=== PATIENT | male | born 1955 | race Caucasian/White ===

== ENCOUNTER 2016-12-03 20:38 | Emergency (ER) | payer BC ==
--- NOTE | ~2016-12-03 | ER ---
PATIENT'S NAME: SARAH GOMEZ [facility] AGE: 61 Y [address] ROOM: [place], [place] [address] LOCATION: [facility] ADMIT DATE: 12/03/2016 ER/Outpatient Report DISCHARGE DATE: 12/03/2016 FAMILY PHYSICIAN: Physician, Unknown ATTENDING PHYSICIAN: Elham Ortega Time of Arrival: 2045. Time of Evaluation: 2054. CHIEF COMPLAINT: Possible bowel obstruction. HISTORY OF PRESENT ILLNESS: The patient states he had a total right knee done on 11/03/2016 in [place]. States he has had some problems with constipation off and on since then. He comes in [facility] because he is concerned that he might have a bowel obstruction. He has not had a good bowel movement for the last 9 days. He has had decreased appetite and nausea. Has some generalized abdominal discomfort. He says it is not really painful, just some general tenderness when pushing. He states he did drink a bottle of magnesium citrate on Friday 12/01 and then again 12/02. He was seen at his primary provider's on 12/02 and given a soapsuds enema with little results. Today, he did go to an urgent care center in [place] at 1330. They gave him 4 tabs of senna and mineral oil. He drank a Gatorade with MiraLAX. He states that he has had liquid type stool, but no solid stools. Denies any trouble urinating. Has not felt feverish. ALLERGIES: NO KNOWN ALLERGIES. CURRENT MEDICATIONS: On his chart and reviewed by me. PAST MEDICAL HISTORY: Benign. PAST SURGERIES: Right knee surgery. SOCIAL HISTORY: He presents to the ER accompanied by his . Denies use of tobacco, drugs, or alcohol. REVIEW OF SYSTEMS: Negative other than those mentioned in the HPI. PATIENT'S NAME: SARAH GOMEZ [facility] AGE: 61 Y [address] ROOM: [place], [place] [id number] LOCATION: [facility] ADMIT DATE: 12/03/2016 ER/Outpatient Report DISCHARGE DATE: 12/03/2016 FAMILY PHYSICIAN: Physician, Unknown ATTENDING PHYSICIAN: Elham Ortega PHYSICAL EXAMINATION: VITAL SIGNS: He weighed 102.9 kg. Blood pressure is 143/96, pulse of 88, respirations 18, temperature of 98.6, O2 saturation was 96% on room air. GENERAL: He is awake, alert, and oriented x4. SKIN: Reeves, warm, and dry. RESPIRATIONS: Even and nonlabored. Lung sounds are clear throughout. HEART: Regular rate and rhythm. ABDOMEN: Soft, nondistended. Bowel sounds are present. He does have generalized discomfort with deep palpation. He has hyperactive bowel sounds. EXTREMITIES: He does have a well-healed incision to his right knee. Denies having any knee pain. Has good range of motion of his knee. EMERGENCY DEPARTMENT COURSE: Saline lock was initiated. Lab work was drawn. CBC is within normal limits. Chem panel is within normal limits. Clean-catch UA is negative for infection. Negative for blood. CT scan of the abdomen was completed. Radiologist reports no evidence of bowel obstruction or constipation. He has a normal appendix. Fluid-filled colon. Normal pancreas. No pancreatitis. He does have fatty infiltrate of the liver and splenomegaly suggestive of portal hypertension. Results of the lab and CT were reviewed with the patient. IMPRESSION: Decreased bowel movements, abdominal pain. PLAN: Home. Did discuss with patient that he could eat. Encouraged him to add some fiber to his diet. Make sure he is maintaining his fluids. If the pain in his abdomen does not improve in the next 2 to 3 days, he is to follow up with his primary provider. He verbalized understanding. MICHAELA MARTINO APRN FOR MD TANYA WORRELL/wade /[id number] d: 12/04/16 0337 t: 12/06/16 1639, OUTPATIENT REPORT
[2016-12-03 21:33] LABS: BILIRUBIN URINE NEGATIVE (NEGATIVE); BLOOD URINE NEGATIVE /UL (NEGATIVE); COLOR URINE YELLOW (YELLOW); GLUCOSE URINE NEGATIVE (NEGATIVE); KETONE URINE 50 mg/dL (NEGATIVE); LEUKOCYTES URINE NEGATIVE /UL (NEGATIVE); NITRITE URINE NEGATIVE (NEGATIVE); PROTEIN URINE 30 mg/dL (NEGATIVE); SPEC GRAVITY URINE 1.025 (1.003-1.035); TURBIDITY URINE CLEAR (CLEAR); UROBILINOGEN URINE NORMAL (NORMAL)
[2016-12-03 21:40] LABS: BACTERIA URINE NEGATIVE (NEGATIVE); CRYSTALS URINE CALCIUM OXALATE (NEGATIVE); EPITHELIAL URINE 0-2 #/HPF (NEGATIVE); MUCUS URINE 2+ (NEGATIVE); RBC URINE NEGATIVE #/HPF (NEGATIVE); WBC URINE RARE #/HPF (NEGATIVE)
[2016-12-03 21:44] LABS: BASOPHIL % 0.3 %; EOSINOPHIL # 0.1 K/uL (0.0-0.5); EOSINOPHIL % 0.7 %; HEMATOCRIT 38.9 % (37.0-53.0); HEMOGLOBIN 13.6 g/dL (11.0-16.0); IMMATURE GRANULOCYTE % 0.3 %; LYMPHOCYTE % 34.1 %; MCH 31.1 pg (27.0-34.0); MONOCYTE # 0.9 K/uL (0.0-1.0); MONOCYTE % 9.8 %; MPV 9.4 fl (9.4-12.4); NEUTROPHIL # (ANC) 4.8 K/uL (1.4-9.0); NEUTROPHIL % 54.8 %; NRBC % 0 /100WBC (0-0.00); PLATELET COUNT 260 K/uL (150-450); RBC 4.37 M/uL (3.50-5.50); RDW-CV 12.1 % (11.9-14.6); WBC 8.8 K/uL (4.0-11.0)
[2016-12-03 22:01] LABS: ALBUMIN 3.9 gm/dL (3.5-5.0); ANION GAP 11.6 (10.0-19.0); CALCIUM 9.1 mg/dL (8.5-10.5); POTASSIUM 3.6 mMol/L (3.7-5.1); TOTAL PROTEIN 7.6 g/dL (6.0-8.4)
== END 2016-12-03 22:56 | disposition disaster alternative care site (69) ==
LOC: GMED 20:38
PROVIDERS: Nurse Practitioner Family
DX: R19.4 Change in bowel habit (principal); R10.84 Generalized abdominal pain; Z98.890 Other specified postprocedural states; Z79.899 Other long term (current) drug therapy
CPT/HCPCS: Q9967